=== PATIENT | male | born 1945 | race African-American/Black ===

== ENCOUNTER 2018-04-09 12:02 | Emergency (ER) | payer OTHER ==
[~2018-04-09] VITALS: Ht 182.9 cm; Wt 62.6 kg
[~2018-04-09 12:02] MED LIST: NKM
[2018-04-09 12:23] VITALS: BP 218/121
--- NOTE | 2018-04-09 12:49 | Emergency Room Report ---
History of Present Illness General Chief Complaint: Male Urogenital Problems Source: Patient Present Illness HPI 72-year-old male presents to the emergency department complaining of progressive 10 out of 10 in severity lower abdominal pain and distention since last night. Patient reports inability to urinate. Patient states that this has happened to him twice in the past but is not a frequent occurrence. Patient denies fevers, chills, nausea, vomiting, hematuria or dysuria. Patient denies history of BPH. Denies recent trauma, fall or back pain/injury. Denies paresthesias. Allergies: Coded Allergies: No Known Allergies (Unverified , 07/04/15) Patient History Past Medical History: see triage record Past Surgical History: none Pertinent Family History: none Reviewed Nursing Documentation: PMH: Agreed; PSxH: Agreed Nursing Documentation-PMH Past Medical History: No History, Except For Review of Systems All Other Systems: negative except mentioned in HPI Physical Exam Vital Signs Date Time Temp Pulse Resp B/P (MAP) Pulse Ox O2 Delivery O2 Flow Rate FiO2 04/09/18 12:08 97.7 96 20 206/130 95 Room Air Sp02 EP Interpretation: reviewed, normal General Appearance: alert, GCS 15, non-toxic, mild distress Head: normocephalic, atraumatic Eyes: bilateral eye normal inspection, bilateral eye PERRL ENT: hearing grossly normal, normal voice Neck: full range of motion Respiratory: lungs clear, normal breath sounds, speaking full sentences Cardiovascular #1: regular rate, rhythm Gastrointestinal: normal bowel sounds, non tender, soft, distended - lower abdominal distention Genitourinary: normal inspection, no CVA tenderness Musculoskeletal: back normal, gait/station normal, normal range of motion, non- tender Neurologic: alert, oriented x3, responsive, motor strength/tone normal, sensory intact, normal gait, speech normal, grossly normal Psychiatric: judgement/insight normal Skin: normal color, no rash, warm/dry, well hydrated Medical Decision Making PA Attestation Dr. Carranza is my supervising Physician whom patient management has been discussed with. Diagnostic Impression: Primary Impression: Urinary (tract) obstruction ER Course 72-year-old male presents to the emergency department complaining of progressive 10 out of 10 in severity lower abdominal pain and distention since last night. Patient reports inability to urinate. Patient states that this has happened to him twice in the past but is not a frequent occurrence. Patient denies fevers, chills, nausea, vomiting, hematuria or dysuria. Patient denies history of BPH. Denies recent trauma, fall or back pain/injury. Denies paresthesias. Ddx considered but are not limited to neurogenic bladder, UTI, bladder outlet obstruction just to name a few Vital signs: are WNL, pt. is afebrile H&PE are most consistent with urinary retention most likely secondary to bladder outlet obstruction or UTI will perform urinalysis ORDERS: -UA: Most indicative of contamination: presence of equal amounts of bacteria and squamous cells, no elevation in inflammatory markers, nitrite negative. ED INTERVENTIONS: -Anne catheter was inserted and 700cc of urine was collected. Status with patient that Anne catheter will remain inserted until follow-up with urologist to prevent recurrence of similar situation. DISCHARGE: At this time pt. is stable for d/c to home. Will provide printed patient care instructions, and any necessary prescriptions. Care plan and follow up instructions have been discussed with the patient prior to discharge. Labs Test 04/09/18 12:41 Urine Color Pale yellow Urine Appearance Clear Urine pH 8 (4.5-8.0) Urine Specific [place] 1.010 (1.005-1.035) Urine Protein 3+ (NEGATIVE) Urine Glucose (UA) Negative (NEGATIVE) Urine Ketones Negative (NEGATIVE) Urine Blood 4+ (NEGATIVE) Urine Nitrite Negative (NEGATIVE) Urine Bilirubin Negative (NEGATIVE) Urine Urobilinogen Normal MG/DL (0.0-1.0) Urine Leukocyte Esterase Negative (NEGATIVE) Urine RBC 20-30 /HPF (0 - 0) Urine WBC 0 /HPF (0 - 0) Urine Squamous Epithelial Cells Occasional /LPF Urine Bacteria Occasional /HPF (NONE) Last Vital Signs Date Time Temp Pulse Resp B/P (MAP) Pulse Ox O2 Delivery O2 Flow Rate FiO2 04/09/18 12:23 97.7 86 18 218/121 96 Room Air Disposition: HOME, SELF-CARE Condition: Stable Patient Instructions: Acute Urinary Retention, Male, [id number] Additional Instructions: Take medications as directed. Follow up with a Primary Care Provider in 3-5 days For a referral to have UROLOGIST Evaluation, even if your symptoms have resolved. --Please review list of primary care clinics, if you do not already have a primary care provider Return sooner to ED if new symptoms occur, or current symptoms become worse. - Please note that this Emergency Department Report was dictated using [email or web address] w[employer] technology software, occasionally this can lead to erroneous entry secondary to interpretation by the dictation equipment. Arlene Andrews Apr 09, 2018 12:49
[2018-04-09 13:04] LABS: APPEARANCE,URINE CLEAR; BILIRUBIN, URINE NEGATIVE (NEGATIVE); COLOR,URINE PALE YELLOW; GLUCOSE, URINE (UA) NEGATIVE (NEGATIVE); KETONES,URINE NEGATIVE (NEGATIVE); LEUKOCYTE ESTERASE ,URINE NEGATIVE (NEGATIVE); NITRITE,URINE NEGATIVE (NEGATIVE); PH,URINE 8 (4.5-8.0); PROTEIN,URINE 3+ (NEGATIVE); UROBILINOGEN,URINE NORMAL MG/DL (0.0-1.0)
[2018-04-09 14:03] VITALS: BP 156/102
== END 2018-04-09 14:02 | disposition home or self-care (01) ==
LOC: MERGE 12:30 → EMR 12:30
DX: N39.0 Urinary tract infection, site not specified (principal)
CPT/HCPCS: 51702; 81003; 99284

== ENCOUNTER 2018-04-12 10:51 | Emergency (ER) | payer OTHER ==
[~2018-04-12] VITALS: Ht 185.4 cm; Wt 108.0 kg
[2018-04-12] MEDS ORDERED: ALBUTEROL2.5 MG/3 M INH (11:10)
[2018-04-12] MEDS ORDERED: TAMSULOSIN HCL0.4 MG ORAL (11:22)
[2018-04-12 11:25] VITALS: BP 162/87
[2018-04-12 11:36] VITALS: BP 146/66
--- NOTE | 2018-04-12 13:05 | Emergency Room Report ---
History of Present Illness General Chief Complaint: Male Urogenital Problems Source: Patient Present Illness [facility] Patient presents with request of Ac catheter removal Reports that he had this catheter placed several days ago here Upon review of medical records patient did have the catheter placed at our facility Patient reports that he is attempting and making outpatient follow-up for further outpatient care However at this time requesting the catheter to be removed Denies any fevers or chills denies any testicular pain denies any abdominal pain Reports that this has have to him several times in the recent past Allergies: Coded Allergies: No Known Allergies (Unverified , 07/04/15) Patient History Past Medical History: see triage record Pertinent Family History: none Reviewed Nursing Documentation: PMH: Agreed; PSxH: Agreed Nursing Documentation-PMH Past Medical History: No History, Except For Review of Systems All Other Systems: negative except mentioned in HPI Physical Exam Vital Signs Date Time Temp Pulse Resp B/P (MAP) Pulse Ox O2 Delivery O2 Flow Rate FiO2 04/12/18 11:03 97.5 56 17 162/87 98 Room Air Sp02 EP Interpretation: reviewed, normal General Appearance: well appearing, no apparent distress Head: normocephalic, atraumatic Eyes: bilateral eye PERRL, bilateral eye EOMI ENT: hearing grossly normal, normal pharynx, TMs + canals normal, uvula midline Neck: full range of motion, supple, no meningismus, no bony tend Respiratory: lungs clear, normal breath sounds, no rhonchi, no respiratory distress, no retraction, no accessory muscle use Cardiovascular #1: normal peripheral pulses, regular rate, rhythm, no edema, no gallop, no JVD, no murmur Gastrointestinal: normal bowel sounds, non tender, soft, no mass, no organomegaly, non-distended, no guarding, no hernia, no pulsatile mass, no rebound Genitourinary: no CVA tenderness, other - Catheter in place Musculoskeletal: normal inspection Neurologic: oriented x3, responsive, warehouse lead III-XII nml as tested, motor strength/ tone normal, sensory intact Psychiatric: mood/affect normal Skin: normal color, no rash, warm/dry, palpation normal Lymphatic: normal inspection, no adenopathy Medical Decision Making Diagnostic Impression: Primary Impression: urinary obstruction Additional Impression: ac removal ER Course Given the patient requested Ac catheter was removed Patient was placed on Flomax Urine sample did not show any evidence of infection therefore patient will have close outpatient follow-up urology referral was also placed for the patient Last Vital Signs Date Time Temp Pulse Resp B/P (MAP) Pulse Ox O2 Delivery O2 Flow Rate FiO2 04/12/18 11:36 97.5 55 17 146/66 99 Room Air Status: improved Disposition: HOME, SELF-CARE Condition: Improved Scripts Tamsulosin Hcl (TAMSULOSIN HCL*) 0.4 Mg Cap.er.24h 0.4 MG ORAL BEDTIME for 5 Days, CAP Prov: Swati Palencia DO 04/12/18 Referrals: Lazaro Saldivar M.D. NON PHYSICIAN (PCP) Patient Instructions: Ac Catheter Care, Adult, Acute Urinary Retention, Male , [id number] Additional Instructions: Patient is provided with the discharge instructions notified to follow up with primary doctor in the next 2-3 days otherwise return to the er with any worsening symptoms. Please note that this report is being documented using [employer] technology. This can lead to erroneous entry secondary to incorrect interpretation by the dictating instrument. Swati Palencia DO Apr 12, 2018 13:05
== END 2018-04-12 11:36 | disposition home or self-care (01) ==
LOC: EMR 11:25
DX: Z46.6 Encounter for fitting and adjustment of urinary device (principal); N13.8 Other obstructive and reflux uropathy
CPT/HCPCS: 99282